=== PATIENT | female | born 1960 | race Caucasian/White ===

== ENCOUNTER → 2022-12-16 14:19 | Outpatient (BNVA) | payer MEDICAID, SELFPAY | PROVIDERS: PCP Family Medicine; Visit Provider Neurological Surgery | DX: M43.26 Fusion of spine, lumbar region (principal) | CPT/HCPCS: 99202 ==

== ENCOUNTER 2023-04-23 13:40 | Outpatient (AMB) | payer MEDICAID, SELFPAY ==
--- NOTE | 2023-04-23 13:44 | HO.SPINEOV ---
Intake Intake Visit Reasons: follow up after injection Intake Note: Mrs. Antunez is here today to follow up Re: outcome of injections. 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 Allergies azithromycin [From Zithromax] Allergy (Unknown, Verified 12/16/22 14:38) Unknown doxycycline Allergy (Unknown, Verified 12/16/22 14:38) Unknown erythritol Allergy (Unknown, Verified 12/16/22 14:38) Unknown oxycodone Allergy (Unknown, Verified 12/16/22 14:38) Unknown gabapentin Adverse Reaction (Unknown, Uncoded 12/16/22 14:38) Unknown Assessment & Plan Assessment & Plan (1) Chronic left SI joint pain: Code(s): M53.3 - Sacrococcygeal disorders, not elsewhere classified; G89.29 - Other chronic pain Plan Eulogio is a 62-year-old female with a surgical Hx significant for L5-S1 lumbar fusion 6 years ago. She responded well to surgery and her lumbar radiculopathy improved. During her last visit she reported that she had left-sided back pain in the SI joint region. We were not able to find anything on the MRI that could explain her pain / discomfort. Her previous injections were trigger-point, epidural and interlaminar injections. She was most recently referred back to [facility] for a left SI joint injection. Unfortunately she reports she had zero relief from her left sided SI joint injection. At this time we are unable to pinpoint an etiology for pain, in do not see any indications for neurosurgery. The patient was strongly encouraged to continue follow-up with [facility] ([facility]) to try and pinpoint a treatment that provides her relief. She was encouraged to follow up with our office at any point in the future if she has new development of acute symptoms. This plan was discussed with Dr. Escalante who is in agreement. Total amount of time spent in this visit was 20 minutes in discussion of symptoms, recent SI joint injection, and subsequent plan of care. Kin Escalante MD,PhD [facility] Coding Level of Care Code Est Pt Level 3 (01307) Diagnoses Chronic left SI joint pain M53.3; G89.29
== END 2023-04-23 14:14 | disposition home or self-care (01) ==
PROVIDERS: PCP Family Medicine; Visit Provider Neurological Surgery
DX: M53.3 Sacrococcygeal disorders, not elsewhere classified (principal); G89.29 Other chronic pain
CPT/HCPCS: 99213

== ENCOUNTER → 2023-04-23 13:40 | Outpatient (BNVA) | payer MEDICAID, SELFPAY | PROVIDERS: PCP Family Medicine; Visit Provider Neurological Surgery | DX: M53.3 Sacrococcygeal disorders, not elsewhere classified (principal); G89.29 Other chronic pain | CPT/HCPCS: 99212 ==